=== PATIENT | female | born 1960 | race Two or more races ===

== ENCOUNTER 2018-10-06 07:10 | Outpatient (CLI) | payer OTHER ==
[~2018-10-06 07:10] MED LIST: ASA81 MG PO; COREG CR10 MG; CRESTOR10 MG PO; PREDNISONE IN5 MG/ML PO
== END 2018-10-06 08:05 | disposition home or self-care (01) ==
LOC: NUCLEAR 07:10
DX: I11.9 Hypertensive heart disease without heart failure (principal); I25.10 Atherosclerotic heart disease of native coronary artery without angina pectoris; E78.49 Other hyperlipidemia
CPT/HCPCS: 78452; 93017; A9500; J0153

== ENCOUNTER → 2019-07-20 06:43 | Outpatient (CLI) | payer OTHER | END | disposition home or self-care (01) | LOC: LAB 06:43 | DX: N93.8 Other specified abnormal uterine and vaginal bleeding (principal) ==

== ENCOUNTER 2019-07-20 07:22 | Outpatient (CLI) | payer OTHER | END 2019-07-20 07:23 | disposition home or self-care (01) | LOC: RAD 07:22 | DX: Z01.811 Encounter for preprocedural respiratory examination (principal) ==

== ENCOUNTER → 2019-07-28 | Day surgery (SDC) | payer OTHER ==
[~2019-07-28] MED LIST changes: +FOLIC ACID1 MG PO; +XELJANZ PO
== END | disposition home or self-care (01) ==
LOC: ADM 07-26 08:15 → CIR.AMB 06:36
DX: N95.0 Postmenopausal bleeding (principal)

== ENCOUNTER 2023-02-14 07:04 | Outpatient (CLI) | payer OTHER | END 2023-02-14 07:08 | disposition home or self-care (01) | LOC: NUCLEAR 07:04 | PROVIDERS: ATTEND Internal Medicine Cardiovascular Disease | DX: I25.10 Atherosclerotic heart disease of native coronary artery without angina pectoris (principal) | CPT/HCPCS: 78452; 93017; A9500; J0153 ==